=== PATIENT | male | born 1985 | race Two or more races ===

== ENCOUNTER 2016-10-03 10:04 | Inpatient (IN) | payer BC ==
[2016-10-03 10:38] VITALS: BMI 23.6
--- NOTE | 2016-10-03 13:10 | HP ---
COWS - Scale Resting Pulse: 1= [place] 81-100 Sweatin= Chills/Flushing Restless Observation: 3= Extraneous Movement Pupil Size: 2= Moderately Dilated Bone or Joint Aches: 4=Acute Joint/Muscle Pain Runny Nose/ Eye Tearin= Nasal Congestion GI Upset > 30mins: 1= Stomach Cramp Tremor Observation: 2= Slight Tremor Visible Yawning Observation: 1= 1-2x During Session Anxiety or Irritability: 1=Feels Anxious/Irritable Goose Flesh Skin: 0=Smooth Skin COWS Score: 17 Admission ROS BHS - HPI Chief Complaint: DETOX [place] FOR HEROIN DEPENDENCE Allergies/Adverse Reactions: Allergies Allergy/AdvReac Type Severity Reaction Status Date / Time No Known Allergies Allergy Verified 10/03/16 11:39 History of Present Illness: 31 Y/O H/M WITH A HX OF HEROIN AND MARIJUANA DEPENDENCE SEEKING DETOX [place] Exam Limitations: No Limitations - Ebola screening Have you traveled outside of the country in the last 21 days: No Have you had contact with anyone from an Ebola affected area: No Have you been sick,other than usual withdrawal symptoms: No Do you have a fever: No - Review of Systems Constitutional: Chills, Loss of Appetite, Night Sweats, Changes in sleep, Unintentional Wgt. Loss EENT: reports: Blurred Vision, Tearing, Nose Congestion Respiratory: reports: Shortness of Breath (HX ASTHMA), Wheezing Cardiac: reports: Lightheadedness GI: reports: Constipated, Nausea, Poor Appetite, Vomiting : reports: No Symptoms Reported Musculoskeletal: reports: Back Pain, Joint Pain, Muscle Pain Integumentary: reports: No Symptoms Reported Neuro: reports: Headache, Dizziness Endocrine: reports: No Symptoms Reported Hematology: reports: No Symptoms Reported Psychiatric: reports: Orientated x3, Anxious, Depressed Other Systems: Reviewed and Negative Patient History - Patient Medical History Hx Anemia: No Hx Asthma: Yes (MDI) Hx Chronic Obstructive Pulmonary Disease (COPD): No Hx Cancer: No Hx Cardiac Disorders: No Hx Congestive Heart Failure: No Hx Hypertension: No Hx Hypercholesterolemia: No Hx Pacemaker: No HX Cerebrovascular Accident: No Hx Seizures: No Hx Dementia: No Hx Diabetes: No Hx Gastrointestinal Disorders: No Hx Liver Disease: No Hx Genitourinary Disorders: No Hx Sexually Transmitted Disorders: No Hx Renal Disease (ESRD): No Hx Thyroid Disease: No Hx Human Immunodeficiency Virus (HIV): No (NEGATIVE HX) Hx Hepatitis C: No Hx Depression: Yes (NOT CURRENTLY ON MEDS) Hx Suicide Attempt: No (DENIES) Hx Bipolar Disorder: No Hx Schizophrenia: No - Patient Surgical History Past Surgical History: No Hx Neurologic Surgery: No Hx Cataract Extraction: No Hx Cardiac Surgery: No Hx Lung Surgery: No Hx Breast Surgery: No Hx Breast Biopsy: No Hx Abdominal Surgery: No Hx Appendectomy: No Hx Cholecystectomy: No Hx Genitourinary Surgery: No Hx Orthopedic Surgery: No Anesthesia Reaction: No - PPD History Previous Implant?: Yes Documented Results: Negative w/proof Implanted On Prior [facility] Admission?: Yes Date: 02/10/16 Results: 0 mm PPD to be Administered?: No - Reproductive History Patient is a Female of Child Bearing Age (11 -55 yrs old): No (MALE) - Smoking Cessation Smoking history: Current every day smoker Have you smoked in the past 12 months: Yes Aproximately how many cigarettes per day: 10 Hx Chewing Tobacco Use: No Initiated information on smoking cessation: Yes 'Breaking Loose' booklet given: 10/03/16 - Substance & Tx. History Hx Alcohol Use: No (DENIES-- "I DON'T DRINK".) Hx Substance Use: Yes (HEROIN/MARIJUANA) Substance Use Type: Heroin, Marijuana Hx Substance Use Treatment: Yes ([facility]-DETOX) - Substances Abused Heroin Route: Inhalation Frequency: Daily Amount used: 4-5 bags Age of first use: 30 Date of Last Use: 10/03/16 Marijuana Route: Smoking Frequency: Daily Amount used: $25 Age of first use: 13 Date of Last Use: 10/02/16 Family Disease History - Family Disease History Family Disease History: Diabetes: Father ( OF AN [place],DRUG ADDICT), Heart Disease: Father Admission Physical Exam BHS - Vital Signs Vital Signs: Vital Signs - 24 hr 10/03/16 10:36 Temperature 95.8 F L Pulse Rate 86 Respiratory 18 Rate Blood Pressure 121/77 - Physical General Appearance: Yes: Moderate Distress, Irritable, Anxious HEENTM: Yes: EOMI, Normocephalic, ANNELIESE, Pharynx Normal, Nasal Congestion, Rhinorrhea Respiratory: Yes: Chest Non-Tender, Lungs Clear, Normal Breath Sounds, No Respiratory Distress Neck: Yes: Supple, Trachea in good position Breast: Yes: Breast Exam Deferred Cardiology: Yes: Regular Rhythm, Regular Rate, S1, S2 Abdominal: Yes: Normal Bowel Sounds, Non Tender, Flat, Soft Genitourinary: Yes: Other (N/C) Musculoskeletal: Yes: full range of Motion, Gait Steady Extremities: Yes: Normal Range of Motion, Non-Tender Neurological: Yes: dermatologist and dermatopathologist II-XII NML intact, Fully Oriented, Alert, Motor Strength 5/5 Integumentary: Yes: Dry, Warm Lymphatic: Yes: Within Normal Limits - Diagnostic (1) Asthma Status: Chronic Qualifiers: Asthma severity: mild intermittent Asthma complication type: uncomplicated Qualified Code(s): J45.20 - Mild intermittent asthma, uncomplicated (2) Cannabis dependence Status: Acute (3) Nicotine dependence Status: Acute Qualifiers: Nicotine product type: cigarettes Substance use status: in withdrawal Qualified Code(s): F17.213 - Nicotine dependence, cigarettes, with withdrawal (4) Opioid dependence with withdrawal Status: Acute Cleared for Admission [facility] - Detox or Rehab [facility] Level of Care: Medically Managed Detox Regimen/Protocol: Methadone [facility] Breath Alcohol Content Breath Alcohol Content: 0 Urine Drug Screen - Results Drug Screen Negative: No Urine Drug Screen Results: THC-Marijuana, FER-Cocaine, OPI-Opiates, OXY- Oxycodone
[2016-10-03] MEDS ORDERED: P-EPHED 60MG/TRIPROLIDI 2.5MG TABLET PO PRN (13:13)
[2016-10-03] MEDS ORDERED: NICOTINE POLACRILEX 2 MG GUM BUC PRN (13:13)
[2016-10-03] MEDS ORDERED: MAGNESIUM CITRATE 300 ML BOTTLE PO PRN (13:13)
[2016-10-03] MEDS ORDERED: MENTHOL/PHENOL 1 EACH UD MM PRN (13:13)
[2016-10-03] MEDS ORDERED: LOPERAMIDE HCL 2 MG CAPSULE PO PRN (13:13)
[2016-10-03] MEDS ORDERED: guaiFENesin/D-METHORPHAN HB 10 ML UNIT-DOSE CUPS PO PRN (13:13)
[2016-10-03] MEDS ORDERED: MAG HYDROX/AL HYDROX/SIMETH 30 ML UNIT-DOSE CUP PO PRN (13:13)
[2016-10-03] MEDS ORDERED: MAGNESIUM HYDROX 2400MG/30ML ORAL SUSPENSION 30 ML CUP PO PRN (13:13)
[2016-10-03] MEDS ORDERED: IBUPROFEN 400 MG TABLET (FP) PO PRN (13:13)
[2016-10-03] MEDS ORDERED: ACETAMINOPHEN 325 MG TABLET (FP) PO PRN (13:13)
[2016-10-03] MEDS ORDERED: hydrOXYzine PAMOATE 25 MG CAPSULE (FP) PO PRN (13:13)
[2016-10-03] MEDS ORDERED: ALBUTEROL SO4 6.7 GM HFA INHALER IH PRN (13:15)
[2016-10-03] MEDS ORDERED: METHADONE HCL 10 MG TABLET (FOR DETOX USE ONLY) PO ONE ×2 (13:17→23:00)
[2016-10-03] MEDS: diazePAM 5 MG TABLET PO PRN ×2 (15:22→22:14)
[2016-10-03] MEDS: NICOTINE 14 MG/24 HOURS TOPICAL PATCH TD SCH (15:23)
[2016-10-03 18:53] LABS: URINE APPEARANCE CLEAR; URINE BILIRUBIN NEGATIVE (NEGATIVE); URINE BLOOD NEGATIVE (NEGATIVE); URINE COLOR LTYELLOW; URINE GLUCOSE (UA) NEGATIVE (NEGATIVE); URINE KETONE NEGATIVE (NEGATIVE); URINE LEUK ESTERASE NEGATIVE (NEGATIVE); URINE NITRITE NEGATIVE (NEGATIVE); URINE PROTEIN NEGATIVE (NEGATIVE); URINE UROBILINOGEN NEGATIVE E.U./dl (0.2-1.0)
[2016-10-03] MEDS: THIAMINE HCL 100 MG TABLET (FP) PO SCH (22:14)
[2016-10-03] MEDS: diphenhydrAMINE HCL 50 MG CAPSULE PO PRN (22:14)
[2016-10-04] MEDS: diazePAM 5 MG TABLET PO PRN ×3 (06:14→22:12)
[2016-10-04] MEDS ORDERED: METHADONE HCL 10 MG TABLET (FOR DETOX USE ONLY) PO ONE (10:00)
[2016-10-04] MEDS: PRENATAL VITAMINS W/ FOLIC ACID TABLET (FP) PO SCH (10:06)
[2016-10-04] MEDS: NICOTINE 14 MG/24 HOURS TOPICAL PATCH TD SCH (10:07)
[2016-10-04 10:19] LABS: MCH 30.8 pg (25.7-33.7); MCHC 34.1 g/dl (32.0-35.9); MEAN CELL VOLUME 90.1 fl (80-96); MEAN PLT VOLUME 10.1 fl (7.5-11.1); PLATELET COUNT 248 K/MM3 (134-434); RDW 11.9 % (11.9-15.9); WHITE BLOOD COUNT 9.4 K/mm3 (4.0-10.0)
[2016-10-04 10:43] LABS: ALBUMIN 3.9 g/dl (3.4-5.0); BILIRUBIN,TOTAL 0.2 mg/dL (0.2-1.0); CALCIUM 9.1 mg/dL (8.5-10.1); CREATININE 1.4 mg/dL (0.7-1.3); TOT PROT 7.3 g/dl (6.4-8.2)
--- NOTE | 2016-10-04 11:08 | PN ---
BHS COWS - Scale Resting Pulse: 1= [place] 81-100 Sweatin=Flushed/Facial Moisture Restless Observation: 0= Sits Still Pupil Size: 0= Normal to Room Light Bone or Joint Aches: 2= Severe Diffuse Aches Runny Nose/ Eye Tearin= Runny Nose/Eyes GI Upset > 30mins: 1= Stomach Cramp Tremor Observation of Outstretched Hands: 2= Slight Tremor Visible Yawning Observation: 2= >3x During Session Anxiety or Irritability: 2=Irritable/Anxious Goose Flesh Skin: 3=Piloerection COWS Score: 17 BHS Progress Note (SOAP) Subjective: irritable restless body aches sweats agitation anxiety interrupted sleep Objective: 10/04/16 11:07 Vital Signs Temperature 98.1 F 10/04/16 10:32 Pulse Rate 89 10/04/16 10:32 Respiratory Rate 16 10/04/16 10:32 Blood Pressure 114/89 10/04/16 10:32 O2 Sat by Pulse Oximetry (%) Laboratory Tests 10/03/16 10/04/16 10/04/16 13:00 06:00 06:00 WBC 9.4 D RBC 4.61 Hgb 14.2 Hct 41.6 MCV 90.1 MCHC 34.1 RDW 11.9 D Plt Count 248 MPV 10.1 Sodium 142 Potassium 4.3 Chloride 103 D Carbon Dioxide 28 Anion Gap 11 BUN 19 H D Creatinine 1.4 H Creat Clearance w eGFR 58.73 Random Glucose 120 H D Calcium 9.1 Total Bilirubin 0.2 D AST 16 D ALT 24 D Alkaline Phosphatase 102 Total Protein 7.3 Albumin 3.9 Urine Color Ltyellow Urine Appearance Clear Urine pH 5.0 Ur Specific [place] 1.025 Urine Protein Negative Urine Glucose (UA) Negative Urine Ketones Negative Urine Blood Negative Urine Nitrite Negative Urine Bilirubin Negative Urine Urobilinogen Negative Ur Leukocyte Esterase Negative awake/alert ambulating no acute distress Assessment: 10/04/16 11:07 withdrawal sx Plan: continue detox increase fluids
--- NOTE | 2016-10-04 12:36 | EKG ---
Test Reason : Blood Pressure : / mmHG Vent. Rate : 068 BPM Atrial Rate : 068 BPM P-R Int : 170 ms QRS Dur : 094 ms QT Int : 390 ms P-R-T Axes : 048 -67 027 degrees QTc Int : 414 ms NORMAL SINUS RHYTHM LEFT AXIS DEVIATION ABNORMAL ECG NO PREVIOUS ECGS AVAILABLE Confirmed by CHELSEA BERRY MD ([id number]) on 10/04/2016 12:36:08 PM Referred By: Confirmed By:CHELSEA BERRY MD
--- NOTE | 2016-10-04 15:26 | CONSULT ---
[facility] Psychiatric Consult - Data Date of interview: 10/04/16 Admission source: [facility] Identifying data: Another admission to [facility] for this 31 y/o male seeking detox treatment on for heroin and marijuana dependence.Patient is ,a father of three,homeless (usp),unemployed and supported on food stamps. Substance Abuse History: - Smoking Cessation. Smoking history: Current every day smoker. Have you smoked in the past 12 months: Yes. Aproximately how many cigarettes per day: 10. Hx Chewing Tobacco Use: No. Initiated information on smoking cessation: Yes. 'Breaking Loose' booklet given: 10/03/16. - Substance & Tx. History. Hx Alcohol Use: No (DENIES-- "I DON'T DRINK".). Hx Substance Use: Yes (HEROIN/MARIJUANA). Substance Use Type: Heroin, Marijuana. Hx Substance Use Treatment: Yes ([facility]-DETOX). - Substances Abused. Heroin. Route: Inhalation. Frequency: Daily. Amount used: 4-5 bags. Age of first use : 30. Date of Last Use: 10/03/16. Marijuana. Route: Smoking. Frequency: Daily. Amount used: $25. Age of first use: 13. Date of Last Use: 10/02/16. Confirmed by patient. Medical History: Bronchial asthma. Psychiatric History: No history of psychiatric hospitalizations.Treated in group home (2005) with depakote and remeron.Diagnosed with bipolar disorder.Lost to follow up since 2012." Mr Porter consents (verbally) only for remeron at bedtime.Patient denies history of suicide attempts. Physical/Sexual Abuse/Trauma History: Patient denies. Additional Comment: Urine Drug Screen Results: THC-Marijuana, FER-Cocaine, OPI- Opiates, OXY-Oxycodone.Noted. Mental Status Exam - Mental Status Exam Alert and Oriented to: Time, Place, Person Cognitive Function: Good Patient Appearance: Well Groomed Mood: Withdrawn Affect: Appropriate, Normal Range Patient Behavior: Fatigued, Appropriate, Cooperative Speech Pattern: Clear, Appropriate Voice Loudness: Normal Thought Process: Goal Oriented Thought Disorder: Not Present Hallucinations: Denies Suicidal Ideation: Denies Homicidal Ideation: Denies Insight/Judgement: Poor Sleep: Poorly, Difficulty falling asleep Appetite: Good Muscle strength/Tone: Normal Gait/Station: Normal Psychiatric Findings - Problem List ([place] 1, 2,3) (1) Opioid dependence with withdrawal Current Visit: Yes Status: Acute (2) Cannabis dependence Current Visit: Yes Status: Acute (3) Cocaine dependence Current Visit: Yes Status: Acute Qualifiers: Substance use status: uncomplicated Qualified Code(s): F14.20 - Cocaine dependence, uncomplicated (4) Nicotine dependence Current Visit: Yes Status: Acute Qualifiers: Nicotine product type: cigarettes Substance use status: uncomplicated Qualified Code(s): F17.210 - Nicotine dependence, cigarettes, uncomplicated (5) Bipolar disorder Current Visit: Yes Status: Chronic (6) Drug-induced mood disorder Current Visit: Yes Status: Acute (7) Asthma Current Visit: No Status: Chronic Qualifiers: Asthma severity: mild intermittent Asthma complication type: uncomplicated Qualified Code(s): J45.20 - Mild intermittent asthma, uncomplicated - Initial Treatment Plan Initial Treatment Plan: Psychoeducation.Detoxification.Remeron 15 mg po hs.Side effects/benefits discussed with the patient.Observation.
[2016-10-04] MEDS ORDERED: MIRTAZAPINE 15 MG TABLET (FP) PO SCH (22:00)
[2016-10-04] MEDS: THIAMINE HCL 100 MG TABLET (FP) PO SCH (22:12)
[2016-10-04] MEDS: diphenhydrAMINE HCL 50 MG CAPSULE PO PRN (22:12)
--- NOTE | 2016-10-05 09:06 | PN ---
S COWS - Scale Resting Pulse: 0= [place] 80 or Below Sweatin=Flushed/Facial Moisture Restless Observation: 1= Difficult to Sit Still Pupil Size: 0= Normal to Room Light Bone or Joint Aches: 2= Severe Diffuse Aches Runny Nose/ Eye Tearin= Nasal Congestion GI Upset > 30mins: 0= None Tremor Observation of Outstretched Hands: 1= Tremor [place], Not Seen Yawning Observation: 1= 1-2x During Session Anxiety or Irritability: 2=Irritable/Anxious Goose Flesh Skin: 3=Piloerection COWS Score: 13 BHS Progress Note (SOAP) Subjective: agitation sweats starting to feel better Objective: 10/05/16 09:05 Vital Signs Temperature 97.7 F 10/05/16 06:00 Pulse Rate 58 L 10/05/16 06:00 Respiratory Rate 16 10/05/16 06:00 Blood Pressure 119/78 10/05/16 06:00 O2 Sat by Pulse Oximetry (%) Laboratory Tests 10/03/16 10/04/16 10/04/16 13:00 06:00 06:00 WBC 9.4 D RBC 4.61 Hgb 14.2 Hct 41.6 MCV 90.1 MCHC 34.1 RDW 11.9 D Plt Count 248 MPV 10.1 Sodium 142 Potassium 4.3 Chloride 103 D Carbon Dioxide 28 Anion Gap 11 BUN 19 H D Creatinine 1.4 H Creat Clearance w eGFR 58.73 Random Glucose 120 H D Calcium 9.1 Total Bilirubin 0.2 D AST 16 D ALT 24 D Alkaline Phosphatase 102 Total Protein 7.3 Albumin 3.9 Urine Color Ltyellow Urine Appearance Clear Urine pH 5.0 Ur Specific [place] 1.025 Urine Protein Negative Urine Glucose (UA) Negative Urine Ketones Negative Urine Blood Negative Urine Nitrite Negative Urine Bilirubin Negative Urine Urobilinogen Negative Ur Leukocyte Esterase Negative RPR Titer 10/04/16 06:00 WBC RBC Hgb Hct MCV MCHC RDW Plt Count MPV Sodium Potassium Chloride Carbon Dioxide Anion Gap BUN Creatinine Creat Clearance w eGFR Random Glucose Calcium Total Bilirubin AST ALT Alkaline Phosphatase Total Protein Albumin Urine Color Urine Appearance Urine pH Ur Specific [place] Urine Protein Urine Glucose (UA) Urine Ketones Urine Blood Urine Nitrite Urine Bilirubin Urine Urobilinogen Ur Leukocyte Esterase RPR Titer Nonreactive awake/alert ambulating no acute distress Assessment: 10/05/16 09:05 withdrawal sx Plan: continue detox increase fluids
[2016-10-05] MEDS ORDERED: METHADONE HCL 5 MG TABLET (FOR DETOX USE ONLY) PO ONE (10:00)
[2016-10-05] MEDS: PRENATAL VITAMINS W/ FOLIC ACID TABLET (FP) PO SCH (11:05)
[2016-10-05] MEDS: NICOTINE 14 MG/24 HOURS TOPICAL PATCH TD SCH (11:06)
[2016-10-05] MEDS: diazePAM 5 MG TABLET PO PRN ×2 (11:09→16:59)
--- NOTE | 2016-10-05 11:59 | EKG ---
Test Reason : Blood Pressure : / mmHG Vent. Rate : 070 BPM Atrial Rate : 070 BPM P-R Int : 164 ms QRS Dur : 096 ms QT Int : 394 ms P-R-T Axes : 066 -63 024 degrees QTc Int : 425 ms NORMAL SINUS RHYTHM LEFT AXIS DEVIATION ABNORMAL ECG WHEN COMPARED WITH ECG OF 03-OCT-2016 14:11, NO SIGNIFICANT CHANGE WAS FOUND Confirmed by JOHN REYES MD ([id number]) on 10/05/2016 11:58:50 AM Referred By: Confirmed By:JOHN REYES MD
[2016-10-05 17:54] VITALS: BP 128/83; PULSE 106; TEMP 97.7
--- NOTE | 2016-10-05 22:44 | DS ---
[facility] Detox Discharge Summary Admission Date: 10/03/16 Discharge Date: 10/05/16 - History Present History: Cannabis Dependence, Cocaine Dependence, Opioid Dependence Additional Comments: patient insists to leave the unit, refuses to wait face to face with the provider consider to follow up care as per arranged by the counselor refuses e prescription Pertinent Past History: bipolar ii asthma nicotine - Physical Exam Results Vital Signs: Vital Signs Temperature 97.7 F 10/05/16 17:53 Pulse Rate 106 H 10/05/16 17:53 Respiratory Rate 20 10/05/16 17:53 Blood Pressure 128/83 10/05/16 17:53 O2 Sat by Pulse Oximetry (%) Pertinent Admission Physical Exam Findings: withdrawal sx Laboratory Last Values WBC 9.4 K/mm3 (4.0-10.0) D 10/04/16 06:00 RBC 4.61 M/mm3 (4.00-5.60) 10/04/16 06:00 Hgb 14.2 GM/dL (11.7-16.9) 10/04/16 06:00 Hct 41.6 % (35.4-49) 10/04/16 06:00 MCV 90.1 fl (80-96) 10/04/16 06:00 MCHC 34.1 g/dl (32.0-35.9) 10/04/16 06:00 RDW 11.9 % (11.9-15.9) D 10/04/16 06:00 Plt Count 248 K/MM3 (134-434) 10/04/16 06:00 MPV 10.1 fl (7.5-11.1) 10/04/16 06:00 Sodium 142 mmol/L (136-145) 10/04/16 06:00 Potassium 4.3 mmol/L (3.5-5.1) 10/04/16 06:00 Chloride 103 mmol/L (98-107) D 10/04/16 06:00 Carbon Dioxide 28 mmol/L (21-32) 10/04/16 06:00 Anion Gap 11 (8-16) 10/04/16 06:00 BUN 19 mg/dL (7-18) H D 10/04/16 06:00 Creatinine 1.4 mg/dL (0.7-1.3) H 10/04/16 06:00 Creat Clearance w eGFR 58.73 (>60) 10/04/16 06:00 Random Glucose 120 mg/dL (74-106) H D 10/04/16 06:00 Calcium 9.1 mg/dL (8.5-10.1) 10/04/16 06:00 Total Bilirubin 0.2 mg/dL (0.2-1.0) D 10/04/16 06:00 AST 16 U/L (15-37) D 10/04/16 06:00 ALT 24 U/L (12-78) D 10/04/16 06:00 Alkaline Phosphatase 102 U/L (45-117) 10/04/16 06:00 Total Protein 7.3 g/dl (6.4-8.2) 10/04/16 06:00 Albumin 3.9 g/dl (3.4-5.0) 10/04/16 06:00 Urine Color Ltyellow 10/03/16 13:00 Urine Appearance Clear 10/03/16 13:00 Urine pH 5.0 (5.0-8.0) 10/03/16 13:00 Ur Specific [place] 1.025 (1.001-1.035) 10/03/16 13:00 Urine Protein Negative (NEGATIVE) 10/03/16 13:00 Urine Glucose (UA) Negative (NEGATIVE) 10/03/16 13:00 Urine Ketones Negative (NEGATIVE) 10/03/16 13:00 Urine Blood Negative (NEGATIVE) 10/03/16 13:00 Urine Nitrite Negative (NEGATIVE) 10/03/16 13:00 Urine Bilirubin Negative (NEGATIVE) 10/03/16 13:00 Urine Urobilinogen Negative E.U./dl (0.2-1.0) 10/03/16 13:00 Ur Leukocyte Esterase Negative (NEGATIVE) 10/03/16 13:00 RPR Titer Nonreactive (NONREACTIVE) 10/04/16 06:00 lab noted - Treatment Hospital Course: Detox Protocol Followed, Responded well - Medication Discharge Medications: Ambulatory Orders Albuterol Sulfate Inhaler - [Ventolin Hfa Inhaler -] 2 inh PO Q4H PRN 03/30/16 Mirtazapine [Remeron -] 30 mg PO HS #30 tablet 03/31/16 Mirtazapine [Remeron -] 15 mg PO HS #30 tablet 10/04/16 - Diagnosis (1) Nicotine dependence Status: Acute Qualifiers: Nicotine product type: cigarettes Substance use status: in withdrawal Qualified Code(s): F17.213 - Nicotine dependence, cigarettes, with withdrawal (2) Opioid dependence with withdrawal Status: Acute (3) Asthma Status: Acute Qualifiers: Asthma severity: mild intermittent Asthma complication type: uncomplicated Qualified Code(s): J45.20 - Mild intermittent asthma, uncomplicated (4) Cocaine dependence, uncomplicated Status: Chronic (5) Cannabis dependence, uncomplicated Status: Chronic (6) Bipolar II disorder Status: Suspected - AMA Did Patient Leave Against Medical Advice: Yes
[2016-10-06] MEDS ORDERED: METHADONE HCL 5 MG TABLET (FOR DETOX USE ONLY) PO ONE (10:00)
[2016-10-07] MEDS ORDERED: METHADONE HCL 10 MG TABLET (FOR DETOX USE ONLY) PO ONE (10:00)
[2016-10-08] MEDS ORDERED: METHADONE HCL 5 MG TABLET (FOR DETOX USE ONLY) PO ONE (06:00)
== END 2016-10-05 20:00 | disposition left against medical advice (07) | DRG 770 ==
LOC: YASAS 10:04 → Y6N 12:07
PROVIDERS: ADMIT Internal Medicine Addiction Medicine; ATTEND Internal Medicine Addiction Medicine
PROC: HZ2ZZZZ Detoxification Services for Substance Abuse Treatment (ICD-10-PCS; principal; 2016-10-05)
DX: F11.23 Opioid dependence with withdrawal (principal); F14.20 Cocaine dependence, uncomplicated; F12.20 Cannabis dependence, uncomplicated; F17.210 Nicotine dependence, cigarettes, uncomplicated; F19.24 Other psychoactive substance dependence with psychoactive substance-induced mood disorder; F31.81 Bipolar II disorder; J45.20 Mild intermittent asthma, uncomplicated
CPT/HCPCS: 36415; 80053; 81003; 85027; 86593; 93005; 93010

== ENCOUNTER 2016-11-26 10:12 | Inpatient (IN) | payer BC ==
[2016-11-26 11:03] VITALS: BMI 22.7
--- NOTE | 2016-11-26 12:47 | HP ---
COWS - Scale Resting Pulse: 0= [place] 80 or Below Sweatin=Flushed/Facial Moisture Restless Observation: 1= Difficult to Sit Still Pupil Size: 2= Moderately Dilated Bone or Joint Aches: 2= Severe Diffuse Aches Runny Nose/ Eye Tearin= Runny Nose/Eyes GI Upset > 30mins: 2= Nausea/Diarrhea Tremor Observation: 2= Slight Tremor Visible Yawning Observation: 1= 1-2x During Session Anxiety or Irritability: 2=Irritable/Anxious Goose Flesh Skin: 3=Piloerection COWS Score: 19 Admission ROS S - HPI Chief Complaint: Withdrawal sx. Allergies/Adverse Reactions: Allergies Allergy/AdvReac Type Severity Reaction Status Date / Time No Known Allergies Allergy Verified 11/26/16 12:14 History of Present Illness: 31 y/o man with a long hx. of drug dependence is admitted for detox.pt. has been in previous detox but completed only once. Exam Limitations: No Limitations - Ebola screening Have you traveled outside of the country in the last 21 days: No Have you had contact with anyone from an Ebola affected area: No Have you been sick,other than usual withdrawal symptoms: No Do you have a fever: No - Review of Systems Constitutional: Diaphoresis EENT: reports: Nose Congestion Respiratory: reports: No Symptoms reported Cardiac: reports: No Symptoms Reported GI: reports: Nausea, Abdominal cramping : reports: No Symptoms Reported Musculoskeletal: reports: Back Pain, Joint Pain, Muscle Pain Integumentary: reports: Sweating Neuro: reports: Tremors Endocrine: reports: No Symptoms Reported Hematology: reports: No Symptoms Reported Psychiatric: reports: No Sypmtoms Reported Other Systems: Reviewed and Negative Patient History - Patient Medical History Hx Anemia: No Hx Asthma: Yes Hx Chronic Obstructive Pulmonary Disease (COPD): Yes Hx Cancer: No Hx Cardiac Disorders: No Hx Congestive Heart Failure: No Hx Hypertension: No Hx Hypercholesterolemia: No Hx Pacemaker: No HX Cerebrovascular Accident: No Hx Seizures: No Hx Dementia: No Hx Diabetes: No Hx Gastrointestinal Disorders: No Hx Liver Disease: No Hx Genitourinary Disorders: No Hx Sexually Transmitted Disorders: No Hx Renal Disease (ESRD): No Hx Thyroid Disease: No Hx Human Immunodeficiency Virus (HIV): No Hx Hepatitis C: No Hx Depression: Yes Hx Suicide Attempt: No Hx Bipolar Disorder: No Hx Schizophrenia: No - Patient Surgical History Past Surgical History: No Hx Neurologic Surgery: No Hx Cataract Extraction: No Hx Cardiac Surgery: No Hx Lung Surgery: No Hx Breast Surgery: No Hx Breast Biopsy: No Hx Abdominal Surgery: No Hx Appendectomy: No Hx Cholecystectomy: No Hx Genitourinary Surgery: No Hx Section: No Hx Orthopedic Surgery: No Anesthesia Reaction: No - PPD History Previous Implant?: Yes Documented Results: Negative w/proof Implanted On Prior [facility] Admission?: Yes Date: 02/10/16 Results: 0 mm PPD to be Administered?: No - Smoking Cessation Smoking history: Current every day smoker Have you smoked in the past 12 months: Yes Aproximately how many cigarettes per day: 10 Hx Chewing Tobacco Use: No Initiated information on smoking cessation: Yes 'Breaking Loose' booklet given: 11/26/16 - Substance & Tx. History Hx Alcohol Use: No Hx Substance Use: Yes Substance Use Type: Heroin, Marijuana Hx Substance Use Treatment: Yes (Detox) - Substances Abused Heroin Route: Inhalation Frequency: Daily Amount used: 15-18 bags Age of first use: 29 Date of Last Use: 11/25/16 Marijuana/Hashish Route: Smoking Frequency: Daily Amount used: 3-4 blunts Age of first use: 14 Date of Last Use: 11/25/16 Family Disease History - Family Disease History Family Disease History: Diabetes: Father ( OF AN [place],DRUG ADDICT), Heart Disease: Father, Other: Mother (In remission from alcohol) Admission Physical Exam S - Vital Signs Vital Signs: Vital Signs - 24 hr 11/26/16 11:01 Temperature 96.3 F L Pulse Rate 72 Respiratory 18 Rate Blood Pressure 110/81 - Physical General Appearance: Yes: Tremorous, Sweating, Anxious HEENTM: Yes: Nasal Congestion, Rhinorrhea Respiratory: Yes: Chest Non-Tender, Lungs Clear, Normal Breath Sounds Neck: Yes: Supple Breast: Yes: Breast Exam Deferred Cardiology: Yes: Regular Rhythm, Regular Rate, S1, S2 Abdominal: Yes: Normal Bowel Sounds, Non Tender, Soft Genitourinary: Yes: Within Normal Limits Musculoskeletal: Yes: Within Normal Limits Extremities: Yes: Tremors Neurological: Yes: Fully Oriented, Alert Integumentary: Yes: Diaphoresis Lymphatic: Yes: Within Normal Limits - Diagnostic (1) Cannabis dependence Current Visit: Yes Status: Acute (2) Nicotine dependence Current Visit: Yes Status: Acute Qualifiers: Nicotine product type: cigarettes Substance use status: in withdrawal Qualified Code(s): F17.213 - Nicotine dependence, cigarettes, with withdrawal (3) Opioid dependence with withdrawal Current Visit: Yes Status: Acute (4) Asthma Current Visit: Yes Status: Chronic Qualifiers: Asthma severity: mild intermittent Asthma complication type: uncomplicated Qualified Code(s): J45.20 - Mild intermittent asthma, uncomplicated Cleared for Admission S - Detox or Rehab [facility] Level of Care: Medically Managed Detox Regimen/Protocol: Methadone S Breath Alcohol Content Breath Alcohol Content: 0 Urine Drug Screen - Results Drug Screen Negative: No Urine Drug Screen Results: THC-Marijuana, OPI-Opiates, MTD-Methadone
[2016-11-26] MEDS ORDERED: ACETAMINOPHEN 325 MG TABLET (FP) PO PRN (12:56)
[2016-11-26] MEDS ORDERED: P-EPHED 60MG/TRIPROLIDI 2.5MG TABLET PO PRN (12:56)
[2016-11-26] MEDS ORDERED: diphenhydrAMINE HCL 50 MG CAPSULE PO PRN (12:56)
[2016-11-26] MEDS ORDERED: MAG HYDROX/AL HYDROX/SIMETH 30 ML UNIT-DOSE CUP PO PRN (12:56)
[2016-11-26] MEDS ORDERED: MAGNESIUM CITRATE 300 ML BOTTLE PO PRN (12:56)
[2016-11-26] MEDS ORDERED: MENTHOL/PHENOL 1 EACH UD MM PRN (12:56)
[2016-11-26] MEDS ORDERED: LOPERAMIDE HCL 2 MG CAPSULE PO PRN (12:56)
[2016-11-26] MEDS ORDERED: NICOTINE POLACRILEX 2 MG GUM BC PRN (12:56)
[2016-11-26] MEDS ORDERED: guaiFENesin/D-METHORPHAN HB 10 ML UNIT-DOSE CUPS PO PRN (12:56)
[2016-11-26] MEDS ORDERED: MAGNESIUM HYDROX 2400MG/30ML ORAL SUSPENSION 30 ML CUP PO PRN (12:56)
[2016-11-26] MEDS ORDERED: hydrOXYzine PAMOATE 50 MG CAPSULE (FP) PO PRN (12:56)
[2016-11-26] MEDS ORDERED: IBUPROFEN 400 MG TABLET (FP) PO PRN (12:56)
[2016-11-26] MEDS ORDERED: ALBUTEROL SO4 6.7 GM HFA INHALER IH PRN (12:58)
[2016-11-26] MEDS: NICOTINE 21 MG/24 HOURS TOPICAL PATCH TD SCH (13:44)
[2016-11-26] MEDS: diazePAM 5 MG TABLET PO PRN ×2 (13:48→21:19)
[2016-11-26] MEDS ORDERED: METHADONE HCL 10 MG TABLET (FOR DETOX USE ONLY) PO ONE ×2 (14:00→23:00)
--- NOTE | 2016-11-26 14:46 | CONSULT ---
[facility] Psychiatric Consult - Data Date of interview: 11/26/16 Admission source: [facility] Identifying data: Readmission to [facility] for this 31 y/o male seeking detox treatment on for heroin and marijuana dependence.Patient is ,a father of three,homeless (fpc),unemployed and supported on food stamps. Substance Abuse History: - Smoking Cessation. Smoking history: Current every day smoker. Have you smoked in the past 12 months: Yes. Aproximately how many cigarettes per day: 10. Hx Chewing Tobacco Use: No. Initiated information on smoking cessation: Yes. 'Breaking Loose' booklet given: 11/26/16. - Substance & Tx. History. Hx Alcohol Use: No. Hx Substance Use: Yes. Substance Use Type : Heroin, Marijuana. Hx Substance Use Treatment: Yes (Detox). - Substances Abused. Heroin. Route: Inhalation. Frequency: Daily. Amount used: 15-18 bags. Age of first use: 29. Date of Last Use: 11/25/16. Marijuana/ Hashish. Route: Smoking. Frequency: Daily. Amount used: 3-4 blunts. Age of first use: 14. Date of Last Use: 11/25/16. Confirmed by patient. Medical History: Bronchial asthma. Psychiatric History: Patient denies history of psychiatric hospitalizations.Was treated in retirement (2005) with depakote and remeron.Diagnosed with Bipolar Disorder.Lost to follow up since 2012." Mr Porter states that he did not follow up with medications after his discharge from [facility]." I did not corn picker my scripts." Patient expresses interest in a trial with seroquel at bedtime.He declines to take depakote because of past history of adverse effects.Patient denies history of suicide attempts. Physical/Sexual Abuse/Trauma History: Patient denies. Additional Comment: Urine Drug Screen Results: THC-Marijuana, OPI-Opiates, MTD- Methadone.Noted. Mental Status Exam - Mental Status Exam Alert and Oriented to: Time, Place, Person Cognitive Function: Good Patient Appearance: Unkempt, Disheveled Mood: Nervous, Withdrawn, Anxious Affect: Constricted Patient Behavior: Fatigued, Cooperative Speech Pattern: Clear Voice Loudness: Normal Thought Process: Goal Oriented Thought Disorder: Not Present Hallucinations: Denies Suicidal Ideation: Denies Homicidal Ideation: Denies Insight/Judgement: Poor Sleep: Poorly, Difficulty falling asleep Appetite: Good Muscle strength/Tone: Normal Gait/Station: Normal Psychiatric Findings - Problem List ([place] 1, 2,3) (1) Cannabis dependence Current Visit: Yes Status: Acute (2) Nicotine dependence Current Visit: Yes Status: Acute Qualifiers: Nicotine product type: cigarettes Substance use status: in withdrawal Qualified Code(s): F17.213 - Nicotine dependence, cigarettes, with withdrawal (3) Opioid dependence with withdrawal Current Visit: Yes Status: Acute (4) Cocaine dependence Current Visit: Yes Status: Acute Qualifiers: Substance use status: uncomplicated Qualified Code(s): F14.20 - Cocaine dependence, uncomplicated (5) Drug-induced mood disorder Current Visit: Yes Status: Acute (6) Bipolar disorder Current Visit: No Status: Chronic Comment: Self-report. (7) Asthma Current Visit: Yes Status: Chronic Qualifiers: Asthma severity: mild intermittent Asthma complication type: uncomplicated Qualified Code(s): J45.20 - Mild intermittent asthma, uncomplicated (8) Insomnia Current Visit: Yes Status: Acute - Initial Treatment Plan Initial Treatment Plan: Psychoeducation.Detoxification.Medications : seroquel 100 mg po hs + remeron 7.5 mg po hs.Patient is made aware of side effects/ benefits of both drugs.He is in agreement with this careplan.Observation.
[2016-11-26 17:42] LABS: URINE APPEARANCE CLEAR; URINE BILIRUBIN NEGATIVE (NEGATIVE); URINE BLOOD NEGATIVE (NEGATIVE); URINE COLOR YELLOW; URINE GLUCOSE (UA) NEGATIVE (NEGATIVE); URINE KETONE NEGATIVE (NEGATIVE); URINE LEUK ESTERASE NEGATIVE (NEGATIVE); URINE NITRITE NEGATIVE (NEGATIVE); URINE PROTEIN NEGATIVE (NEGATIVE); URINE UROBILINOGEN NEGATIVE E.U./dl (0.2-1.0)
[2016-11-26] MEDS: THIAMINE HCL 100 MG TABLET (FP) PO SCH (22:10)
[2016-11-26] MEDS: MIRTAZAPINE 15 MG TABLET (FP) PO SCH (22:10)
[2016-11-26] MEDS: QUEtiapine FUMARATE 100 MG TABLET (FP) PO SCH (22:11)
[2016-11-27] MEDS: diazePAM 5 MG TABLET PO PRN ×2 (05:54→22:33)
[2016-11-27] MEDS ORDERED: TRIMETHOBENZAMIDE HCL 200MG/2ML INJ IM ONE (08:49)
[2016-11-27 09:58] LABS: MCH 29.7 pg (25.7-33.7); MCHC 33.8 g/dl (32.0-35.9); MEAN PLT VOLUME 9.9 fl (7.5-11.1); PLATELET COUNT 320 K/MM3 (134-434); RDW 12.1 % (11.9-15.9); WHITE BLOOD COUNT 8.8 K/mm3 (4.0-10.0)
[2016-11-27] MEDS ORDERED: METHADONE HCL 10 MG TABLET (FOR DETOX USE ONLY) PO ONE (10:00)
[2016-11-27] MEDS ORDERED: METHADONE HCL 10 MG/1 ML (20ML VIAL) IM ONE (10:24)
--- NOTE | 2016-11-27 10:40 | PN ---
S COWS - Scale Resting Pulse: 1= [place] 81-100 Sweatin= Chills/Flushing Restless Observation: 3= Extraneous Movement Pupil Size: 2= Moderately Dilated Bone or Joint Aches: 4=Acute Joint/Muscle Pain Runny Nose/ Eye Tearin= Nasal Congestion GI Upset > 30mins: 1= Stomach Cramp Tremor Observation of Outstretched Hands: 1= Tremor [place], Not Seen Yawning Observation: 1= 1-2x During Session Anxiety or Irritability: 2=Irritable/Anxious Goose Flesh Skin: 0=Smooth Skin COWS Score: 17 S Progress Note (SOAP) Subjective: ANXIETY,IRRITABILITY,SWEAT,NAUSEA/VOMITING,INTERMITTENT. Objective: 11/27/16 10:44 Vital Signs Temperature 98.3 F 11/27/16 09:45 Pulse Rate 87 11/27/16 09:45 Respiratory Rate 18 11/27/16 09:45 Blood Pressure 152/109 11/27/16 09:45 O2 Sat by Pulse Oximetry (%) Laboratory Last Values WBC 8.8 K/mm3 (4.0-10.0) 11/27/16 06:00 RBC 5.08 M/mm3 (4.00-5.60) 11/27/16 06:00 Hgb 15.1 GM/dL (11.7-16.9) 11/27/16 06:00 Hct 44.7 % (35.4-49) 11/27/16 06:00 MCV 88.0 fl (80-96) 11/27/16 06:00 MCHC 33.8 g/dl (32.0-35.9) 11/27/16 06:00 RDW 12.1 % (11.9-15.9) 11/27/16 06:00 Plt Count 320 K/MM3 (134-434) D 11/27/16 06:00 MPV 9.9 fl (7.5-11.1) 11/27/16 06:00 Urine Color Yellow 11/26/16 14:00 Urine Appearance Clear 11/26/16 14:00 Urine pH 5.0 (5.0-8.0) 11/26/16 14:00 Ur Specific [place] 1.020 (1.005-1.025) 11/26/16 14:00 Urine Protein Negative (NEGATIVE) 11/26/16 14:00 Urine Glucose (UA) Negative (NEGATIVE) 11/26/16 14:00 Urine Ketones Negative (NEGATIVE) 11/26/16 14:00 Urine Blood Negative (NEGATIVE) 11/26/16 14:00 Urine Nitrite Negative (NEGATIVE) 11/26/16 14:00 Urine Bilirubin Negative (NEGATIVE) 11/26/16 14:00 Urine Urobilinogen Negative E.U./dl (0.2-1.0) 11/26/16 14:00 Ur Leukocyte Esterase Negative (NEGATIVE) 11/26/16 14:00 RPR Titer Nonreactive (NONREACTIVE) 11/27/16 06:00 Assessment: 11/27/16 10:44 WITHDRAWAL SX Plan: CONTINUE DETOX. MACKENZIE IM PRN
[2016-11-27] MEDS ORDERED: METHADONE DETOX 10 MG/1 ML [20ML VIAL] IM ONE (10:41)
[2016-11-27] MEDS: NICOTINE 21 MG/24 HOURS TOPICAL PATCH TD SCH (10:53)
[2016-11-27] MEDS: PRENATAL VITAMINS W/ FOLIC ACID TABLET (FP) PO SCH (10:53)
--- NOTE | 2016-11-27 11:46 | EKG ---
Test Reason : Blood Pressure : / mmHG Vent. Rate : 063 BPM Atrial Rate : 063 BPM P-R Int : 164 ms QRS Dur : 090 ms QT Int : 392 ms P-R-T Axes : 058 -67 031 degrees QTc Int : 401 ms NORMAL SINUS RHYTHM LEFT AXIS DEVIATION ABNORMAL ECG WHEN COMPARED WITH ECG OF 03-OCT-2016 14:54, NO SIGNIFICANT CHANGE WAS FOUND Confirmed by KARLA SINGH MD ([id number]) on 11/27/2016 11:45:39 AM Referred By: Confirmed By:KARLA SINGH MD
[2016-11-27 11:54] LABS: COCKROFT - GAULT 95.25; CREATININE 1.1 mg/dL (0.7-1.3); GLUCOSE,RANDOM 92 mg/dL (74-106)
[2016-11-27 11:55] LABS: ALBUMIN 4.1 g/dl (3.4-5.0); ANION GAP 10 (8-16); BILIRUBIN,TOTAL 0.3 mg/dL (0.2-1.0); CALCIUM 9.8 mg/dL (8.5-10.1); CO2 28 mmol/L (21-32); SGOT/AST 14 U/L (15-37); TOT PROT 8.3 g/dl (6.4-8.2)
[2016-11-27 11:56] LABS: ALK PHOS 110 U/L (45-117); SGPT/ALT 19 U/L (12-78)
[2016-11-27] MEDS: TRIMETHOBENZAMIDE HCL 200MG/2ML INJ IM PRN (20:50)
[2016-11-27] MEDS: THIAMINE HCL 100 MG TABLET (FP) PO SCH (22:33)
[2016-11-27] MEDS: QUEtiapine FUMARATE 100 MG TABLET (FP) PO SCH (22:35)
[2016-11-27] MEDS: MIRTAZAPINE 15 MG TABLET (FP) PO SCH (22:36)
[2016-11-28] MEDS: TRIMETHOBENZAMIDE HCL 200MG/2ML INJ IM PRN ×2 (06:01→22:42)
[2016-11-28] MEDS ORDERED: METHADONE HCL 5 MG TABLET (FOR DETOX USE ONLY) PO ONE (10:00)
[2016-11-28] MEDS: PRENATAL VITAMINS W/ FOLIC ACID TABLET (FP) PO SCH (10:41)
[2016-11-28] MEDS: diazePAM 5 MG TABLET PO PRN (10:42)
[2016-11-28] MEDS: NICOTINE 21 MG/24 HOURS TOPICAL PATCH TD SCH (10:42)
--- NOTE | 2016-11-28 11:08 | PN ---
BHS COWS - Scale Resting Pulse: 2= [place] 101-120 Sweatin= Chills/Flushing Restless Observation: 3= Extraneous Movement Pupil Size: 1= Pupils >than Normal Bone or Joint Aches: 2= Severe Diffuse Aches Runny Nose/ Eye Tearin= Runny Nose/Eyes GI Upset > 30mins: 3= Vomiting/Diarrhea Tremor Observation of Outstretched Hands: 2= Slight Tremor Visible Yawning Observation: 1= 1-2x During Session Anxiety or Irritability: 2=Irritable/Anxious Goose Flesh Skin: 0=Smooth Skin COWS Score: 19 S Progress Note (SOAP) Subjective: ALERT,IRRITABLE,ANXIOUS,INTERRUPTED SLEEP,PAIN IN THE BODY AND BACK Objective: 11/28/16 11:06 Vital Signs Temperature 97.9 F 11/28/16 09:27 Pulse Rate 120 H 11/28/16 09:27 Respiratory Rate 18 11/28/16 09:27 Blood Pressure 138/98 11/28/16 09:27 O2 Sat by Pulse Oximetry (%) EKG NSR NO CHEST PAIN,NO SOB,NO DIZZINESS Laboratory Last Values WBC 8.8 K/mm3 (4.0-10.0) 11/27/16 06:00 RBC 5.08 M/mm3 (4.00-5.60) 11/27/16 06:00 Hgb 15.1 GM/dL (11.7-16.9) 11/27/16 06:00 Hct 44.7 % (35.4-49) 11/27/16 06:00 MCV 88.0 fl (80-96) 11/27/16 06:00 MCHC 33.8 g/dl (32.0-35.9) 11/27/16 06:00 RDW 12.1 % (11.9-15.9) 11/27/16 06:00 Plt Count 320 K/MM3 (134-434) D 11/27/16 06:00 MPV 9.9 fl (7.5-11.1) 11/27/16 06:00 Sodium 139 mmol/L (136-145) 11/27/16 06:00 Potassium 4.7 mmol/L (3.5-5.1) 11/27/16 06:00 Chloride 101 mmol/L (98-107) 11/27/16 06:00 Carbon Dioxide 28 mmol/L (21-32) 11/27/16 06:00 Anion Gap 10 (8-16) 11/27/16 06:00 BUN 12 mg/dL (7-18) D 11/27/16 06:00 Creatinine 1.1 mg/dL (0.7-1.3) D 11/27/16 06:00 Creat Clearance w eGFR > 60 (>60) 11/27/16 06:00 Random Glucose 92 mg/dL (74-106) D 11/27/16 06:00 Calcium 9.8 mg/dL (8.5-10.1) 11/27/16 06:00 Total Bilirubin 0.3 mg/dL (0.2-1.0) D 11/27/16 06:00 AST 14 U/L (15-37) L 11/27/16 06:00 ALT 19 U/L (12-78) D 11/27/16 06:00 Alkaline Phosphatase 110 U/L (45-117) 11/27/16 06:00 Total Protein 8.3 g/dl (6.4-8.2) H 11/27/16 06:00 Albumin 4.1 g/dl (3.4-5.0) 11/27/16 06:00 Urine Color Yellow 11/26/16 14:00 Urine Appearance Clear 11/26/16 14:00 Urine pH 5.0 (5.0-8.0) 11/26/16 14:00 Ur Specific [place] 1.020 (1.005-1.025) 11/26/16 14:00 Urine Protein Negative (NEGATIVE) 11/26/16 14:00 Urine Glucose (UA) Negative (NEGATIVE) 11/26/16 14:00 Urine Ketones Negative (NEGATIVE) 11/26/16 14:00 Urine Blood Negative (NEGATIVE) 11/26/16 14:00 Urine Nitrite Negative (NEGATIVE) 11/26/16 14:00 Urine Bilirubin Negative (NEGATIVE) 11/26/16 14:00 Urine Urobilinogen Negative E.U./dl (0.2-1.0) 11/26/16 14:00 Ur Leukocyte Esterase Negative (NEGATIVE) 11/26/16 14:00 RPR Titer Nonreactive (NONREACTIVE) 11/27/16 06:00 Assessment: 11/28/16 11:07 WITHDRAWAL SYMPTOM Plan: CONTINUE DETOX
[2016-11-28] MEDS: MIRTAZAPINE 15 MG TABLET (FP) PO SCH (22:08)
[2016-11-28] MEDS: QUEtiapine FUMARATE 100 MG TABLET (FP) PO SCH (22:08)
[2016-11-28] MEDS: THIAMINE HCL 100 MG TABLET (FP) PO SCH (22:08)
[2016-11-29] MEDS: TRIMETHOBENZAMIDE HCL 200MG/2ML INJ IM PRN (09:40)
[2016-11-29] MEDS ORDERED: METHADONE HCL 5 MG TABLET (FOR DETOX USE ONLY) PO ONE (10:00)
[2016-11-29] MEDS: PRENATAL VITAMINS W/ FOLIC ACID TABLET (FP) PO SCH (10:52)
[2016-11-29] MEDS: NICOTINE 21 MG/24 HOURS TOPICAL PATCH TD SCH (10:52)
--- NOTE | 2016-11-29 12:35 | PN ---
BHS Progress Note (SOAP) Subjective: Fatigue, Stomach Cramping, Body Aches, Vomiting, Tremors. Objective: PT. A & O X 3, OBSERVED AMBULATING ON UNIT. PT. DENIES CHEST PAIN. 11/29/16 12:31 Vital Signs Temperature 97.0 F L 11/29/16 09:14 Pulse Rate 97 H 11/29/16 09:14 Respiratory Rate 20 11/29/16 09:14 Blood Pressure 136/97 11/29/16 09:14 O2 Sat by Pulse Oximetry (%) Laboratory Tests 11/26/16 11/27/16 11/27/16 14:00 06:00 06:00 WBC 8.8 RBC 5.08 Hgb 15.1 Hct 44.7 MCV 88.0 MCHC 33.8 RDW 12.1 Plt Count 320 D MPV 9.9 Sodium 139 Potassium 4.7 Chloride 101 Carbon Dioxide 28 Anion Gap 10 BUN 12 D Creatinine 1.1 D Creat Clearance w eGFR > 60 Random Glucose 92 D Calcium 9.8 Total Bilirubin 0.3 D AST 14 L ALT 19 D Alkaline Phosphatase 110 Total Protein 8.3 H Albumin 4.1 Urine Color Yellow Urine Appearance Clear Urine pH 5.0 Ur Specific [place] 1.020 Urine Protein Negative Urine Glucose (UA) Negative Urine Ketones Negative Urine Blood Negative Urine Nitrite Negative Urine Bilirubin Negative Urine Urobilinogen Negative Ur Leukocyte Esterase Negative RPR Titer 11/27/16 06:00 WBC RBC Hgb Hct MCV MCHC RDW Plt Count MPV Sodium Potassium Chloride Carbon Dioxide Anion Gap BUN Creatinine Creat Clearance w eGFR Random Glucose Calcium Total Bilirubin AST ALT Alkaline Phosphatase Total Protein Albumin Urine Color Urine Appearance Urine pH Ur Specific [place] Urine Protein Urine Glucose (UA) Urine Ketones Urine Blood Urine Nitrite Urine Bilirubin Urine Urobilinogen Ur Leukocyte Esterase RPR Titer Nonreactive LABS NOTED. Assessment: 11/29/16 12:32 WITHDRAWAL SYMPTOMS. Plan: CONTINUE DETOX.
[2016-11-29] MEDS: THIAMINE HCL 100 MG TABLET (FP) PO SCH (22:39)
[2016-11-29] MEDS: MIRTAZAPINE 15 MG TABLET (FP) PO SCH (22:39)
[2016-11-29] MEDS: QUEtiapine FUMARATE 100 MG TABLET (FP) PO SCH (22:40)
[2016-11-30] MEDS: TRIMETHOBENZAMIDE HCL 200MG/2ML INJ IM PRN (06:07)
[2016-11-30 06:18] VITALS: PULSE 101; TEMP 97.5
[2016-11-30 09:25] VITALS: BP 135/101
[2016-11-30] MEDS ORDERED: METHADONE HCL 10 MG TABLET (FOR DETOX USE ONLY) PO ONE (10:00)
[2016-11-30] MEDS: PRENATAL VITAMINS W/ FOLIC ACID TABLET (FP) PO SCH (10:42)
[2016-11-30] MEDS: NICOTINE 21 MG/24 HOURS TOPICAL PATCH TD SCH (11:06)
--- NOTE | 2016-11-30 11:33 | DS ---
[facility] Detox Discharge Summary Admission Date: 11/26/16 Discharge Date: 11/30/16 - History Present History: Alcohol Dependence, Cannabis Dependence, Cocaine Dependence, Opioid Dependence Pertinent Past History: Asthma - Physical Exam Results Vital Signs: Vital Signs Temperature 97.5 F L 11/30/16 09:24 Pulse Rate 101 H 11/30/16 09:24 Respiratory Rate 20 11/30/16 09:24 Blood Pressure 135/101 11/30/16 09:24 O2 Sat by Pulse Oximetry (%) Pertinent Admission Physical Exam Findings: Withdrawal sx. Laboratory Last Values WBC 8.8 K/mm3 (4.0-10.0) 11/27/16 06:00 RBC 5.08 M/mm3 (4.00-5.60) 11/27/16 06:00 Hgb 15.1 GM/dL (11.7-16.9) 11/27/16 06:00 Hct 44.7 % (35.4-49) 11/27/16 06:00 MCV 88.0 fl (80-96) 11/27/16 06:00 MCHC 33.8 g/dl (32.0-35.9) 11/27/16 06:00 RDW 12.1 % (11.9-15.9) 11/27/16 06:00 Plt Count 320 K/MM3 (134-434) D 11/27/16 06:00 MPV 9.9 fl (7.5-11.1) 11/27/16 06:00 Sodium 139 mmol/L (136-145) 11/27/16 06:00 Potassium 4.7 mmol/L (3.5-5.1) 11/27/16 06:00 Chloride 101 mmol/L (98-107) 11/27/16 06:00 Carbon Dioxide 28 mmol/L (21-32) 11/27/16 06:00 Anion Gap 10 (8-16) 11/27/16 06:00 BUN 12 mg/dL (7-18) D 11/27/16 06:00 Creatinine 1.1 mg/dL (0.7-1.3) D 11/27/16 06:00 Creat Clearance w eGFR > 60 (>60) 11/27/16 06:00 Random Glucose 92 mg/dL (74-106) D 11/27/16 06:00 Calcium 9.8 mg/dL (8.5-10.1) 11/27/16 06:00 Total Bilirubin 0.3 mg/dL (0.2-1.0) D 11/27/16 06:00 AST 14 U/L (15-37) L 11/27/16 06:00 ALT 19 U/L (12-78) D 11/27/16 06:00 Alkaline Phosphatase 110 U/L (45-117) 11/27/16 06:00 Total Protein 8.3 g/dl (6.4-8.2) H 11/27/16 06:00 Albumin 4.1 g/dl (3.4-5.0) 11/27/16 06:00 Urine Color Yellow 11/26/16 14:00 Urine Appearance Clear 11/26/16 14:00 Urine pH 5.0 (5.0-8.0) 11/26/16 14:00 Ur Specific [place] 1.020 (1.005-1.025) 11/26/16 14:00 Urine Protein Negative (NEGATIVE) 11/26/16 14:00 Urine Glucose (UA) Negative (NEGATIVE) 11/26/16 14:00 Urine Ketones Negative (NEGATIVE) 11/26/16 14:00 Urine Blood Negative (NEGATIVE) 11/26/16 14:00 Urine Nitrite Negative (NEGATIVE) 11/26/16 14:00 Urine Bilirubin Negative (NEGATIVE) 11/26/16 14:00 Urine Urobilinogen Negative E.U./dl (0.2-1.0) 11/26/16 14:00 Ur Leukocyte Esterase Negative (NEGATIVE) 11/26/16 14:00 RPR Titer Nonreactive (NONREACTIVE) 11/27/16 06:00 labs noted - Treatment Patient has Accepted a Rehab Referral to: [facility]. IOP - Medication Discharge Medications: Ambulatory Orders Albuterol Sulfate Inhaler - [Ventolin Hfa Inhaler -] 2 inh PO Q4H PRN 03/30/16 Mirtazapine 7.5 mg PO HS #30 tablet 11/30/16 Quetiapine Fumarate [Seroquel] 100 mg PO HS #30 tablet 11/30/16 - Diagnosis (1) Cannabis dependence Current Visit: Yes Status: Acute (2) Nicotine dependence Current Visit: Yes Status: Acute Qualifiers: Nicotine product type: cigarettes Substance use status: in withdrawal Qualified Code(s): F17.213 - Nicotine dependence, cigarettes, with withdrawal (3) Opioid dependence with withdrawal Current Visit: Yes Status: Acute (4) Asthma Current Visit: Yes Status: Chronic Qualifiers: Asthma severity: mild intermittent Asthma complication type: uncomplicated Qualified Code(s): J45.20 - Mild intermittent asthma, uncomplicated (5) Drug-induced mood disorder Current Visit: Yes Status: Acute (6) Bipolar disorder Current Visit: Yes Status: Chronic - AMA Did Patient Leave Against Medical Advice: Yes
[2016-12-01] MEDS ORDERED: METHADONE HCL 5 MG TABLET (FOR DETOX USE ONLY) PO ONE (06:00)
== END 2016-11-30 11:30 | disposition left against medical advice (07) | DRG 770 ==
LOC: YASAS 10:12 → Y3N 13:11
PROVIDERS: ADMIT Internal Medicine; ATTEND Internal Medicine
PROC: HZ2ZZZZ Detoxification Services for Substance Abuse Treatment (ICD-10-PCS; principal; 2016-11-26)
DX: F11.23 Opioid dependence with withdrawal (principal); F12.20 Cannabis dependence, uncomplicated; F17.213 Nicotine dependence, cigarettes, with withdrawal; F19.24 Other psychoactive substance dependence with psychoactive substance-induced mood disorder; F31.9 Bipolar disorder, unspecified; J45.20 Mild intermittent asthma, uncomplicated; J44.9 Chronic obstructive pulmonary disease, unspecified; G47.00 Insomnia, unspecified
CPT/HCPCS: 36415; 80053; 81003; 85027; 86593; 93005; 93010

== ENCOUNTER 2017-02-04 15:57 | Inpatient (IN) | payer BC ==
[2017-02-04 17:11] VITALS: BMI 22.4
--- NOTE | 2017-02-04 19:55 | HP ---
COWS - Scale Resting Pulse: 0= [place] 80 or Below Sweatin=Flushed/Facial Moisture Restless Observation: 3= Extraneous Movement Pupil Size: 2= Moderately Dilated Bone or Joint Aches: 2= Severe Diffuse Aches Runny Nose/ Eye Tearin= Runny Nose/Eyes GI Upset > 30mins: 3= Vomiting/Diarrhea Tremor Observation: 2= Slight Tremor Visible Yawning Observation: 2= >3x During Session Anxiety or Irritability: 2=Irritable/Anxious Goose Flesh Skin: 0=Smooth Skin COWS Score: 20 Admission ROS S - HPI Chief Complaint: I AM HERE DETOX FROM HEROIN Allergies/Adverse Reactions: Allergies Allergy/AdvReac Type Severity Reaction Status Date / Time No Known Allergies Allergy Verified 02/04/17 19:14 History of Present Illness: THIS 31 YEARS OLD MALE WITH HEROIN DEPENDENCE,SEEKING DETOX,LAST TREATMENT IN [place] FOR 01/18 17 TO 01/20/17 NOT COMPLETED MULTIPLE ADMISSIONS TO DETOX ,KEEP RELAPSING NICOTINE DEPENDENCE ANXIETY,DEPRESSION,INSOMNIA LONGEST PERIOD OF SOBRIETY 6 MONTHS Exam Limitations: No Limitations - Ebola screening Have you traveled outside of the country in the last 21 days: No Have you had contact with anyone from an Ebola affected area: No Have you been sick,other than usual withdrawal symptoms: No Do you have a fever: No - Review of Systems Constitutional: Chills, Diaphoresis, Loss of Appetite, Malaise, Night Sweats, Changes in sleep, Weakness, Unintentional Wgt. Loss EENT: reports: Tearing, Nose Congestion Respiratory: reports: No Symptoms reported, Other (ASTHMA) Cardiac: reports: No Symptoms Reported GI: reports: Diarrhea, Nausea, Vomiting, Abdominal cramping : reports: No Symptoms Reported Musculoskeletal: reports: Back Pain, Joint Pain, Muscle Pain, Joint Stiffness Integumentary: reports: Dryness Neuro: reports: Headache, Tremors Endocrine: reports: No Symptoms Reported Hematology: reports: No Symptoms Reported Psychiatric: reports: Judgement Intact, Mood/Affect Appropiate, Orientated x3, Anxious, Depressed Patient History - Patient Medical History Hx Anemia: No Hx Asthma: Yes (ON ALBUEROL INHALER) Hx Chronic Obstructive Pulmonary Disease (COPD): Yes (ON ALBUTEROL INHALER) Hx Cancer: No Hx Cardiac Disorders: No Hx Congestive Heart Failure: No Hx Hypertension: No Hx Hypercholesterolemia: No Hx Pacemaker: No HX Cerebrovascular Accident: No Hx Seizures: No Hx Dementia: No Hx Diabetes: No Hx Gastrointestinal Disorders: No Hx Liver Disease: No Hx Genitourinary Disorders: No Hx Sexually Transmitted Disorders: No Hx Renal Disease (ESRD): No Hx Thyroid Disease: No Hx Human Immunodeficiency Virus (HIV): No (LAST 09/21 NEGATIVE) Hx Hepatitis C: No Hx Depression: Yes (ANXIETY) Hx Suicide Attempt: No Hx Bipolar Disorder: No Hx Schizophrenia: No Other Medical History: INSOMNIA,NO SUICIDAL,NO HOMICIDAL - Patient Surgical History Past Surgical History: No Hx Neurologic Surgery: No Hx Cataract Extraction: No Hx Cardiac Surgery: No Hx Lung Surgery: No Hx Breast Surgery: No Hx Breast Biopsy: No Hx Abdominal Surgery: No Hx Appendectomy: No Hx Cholecystectomy: No Hx Genitourinary Surgery: No Hx Section: No Hx Orthopedic Surgery: No Anesthesia Reaction: No - PPD History Previous Implant?: No Documented Results: Negative w/proof Implanted On Prior [facility] Admission?: Yes Date: 02/10/16 Results: 0 mm PPD to be Administered?: No - Smoking Cessation Smoking history: Current every day smoker Have you smoked in the past 12 months: Yes Aproximately how many cigarettes per day: 5 Hx Chewing Tobacco Use: No Initiated information on smoking cessation: Yes 'Breaking Loose' booklet given: 02/04/17 - Substance & Tx. History Hx Alcohol Use: No Hx Substance Use: Yes Substance Use Type: Heroin, Marijuana Hx Substance Use Treatment: Yes ([place] 01/18/17 TO 01/20/17 NOT COMPLETED) - Substances Abused Heroin Route: Inhalation Frequency: Daily Amount used: 4 bags Age of first use: 29 Date of Last Use: 02/04/17 Family Disease History - Family Disease History Family Disease History: Diabetes: Father ( OF AN CA,DRUG ADDICT), Heart Disease: Father, Other: Mother (In remission from alcohol) Admission Physical Exam BHS - Vital Signs Vital Signs: Vital Signs - 24 hr 02/04/17 17:08 Temperature 97.6 F Pulse Rate 68 Respiratory 18 Rate Blood Pressure 125/77 - Physical General Appearance: Yes: Moderate Distress, Tremorous, Irritable, Sweating, Anxious HEENTM: Yes: Normal ENT Inspection, [place], Pharynx Normal Respiratory: Yes: Lungs Clear, Normal Breath Sounds, No Respiratory Distress Neck: Yes: Within Normal Limits, Supple, Trachea in good position Breast: Yes: Within Normal Limits Cardiology: Yes: Within Normal Limits, Regular Rhythm, Regular Rate, S1, S2 Abdominal: Yes: Within Normal Limits, Normal Bowel Sounds, Non Tender, Flat, Soft Genitourinary: Yes: Within Normal Limits Back: Yes: Muscle Spasm Musculoskeletal: Yes: full range of Motion, Back pain, Joint Stiffness, Muscle Pain Extremities: Yes: Within Normal Limits, Normal Range of Motion, Tremors Neurological: Yes: appraiser [place] II-XII NML intact, Fully Oriented, Alert, Motor Strength 5/5 Integumentary: Yes: Within Normal Limits, Dry Lymphatic: Yes: Within Normal Limits - Diagnostic (1) Cannabis dependence Current Visit: No Status: Acute (2) Insomnia Current Visit: No Status: Acute (3) Nicotine dependence Current Visit: No Status: Acute Qualifiers: Nicotine product type: cigarettes Substance use status: in withdrawal Qualified Code(s): F17.213 - Nicotine dependence, cigarettes, with withdrawal (4) Opioid dependence with withdrawal Current Visit: No Status: Acute (5) Cannabis dependence, uncomplicated Current Visit: No Status: Chronic (6) Weight loss Current Visit: Yes Status: Acute Cleared for Admission [facility] - Detox or Rehab [facility] Level of Care: Medically Managed Detox Regimen/Protocol: Methadone [facility] Breath Alcohol Content Breath Alcohol Content: 0 Urine Drug Screen - Results Drug Screen Negative: No Urine Drug Screen Results: THC-Marijuana, FER-Cocaine, OPI-Opiates, MTD- Methadone
[2017-02-04] MEDS ORDERED: guaiFENesin/D-METHORPHAN HB 10 ML UNIT-DOSE CUPS PO PRN (20:05)
[2017-02-04] MEDS ORDERED: MAGNESIUM CITRATE 300 ML BOTTLE PO PRN (20:05)
[2017-02-04] MEDS ORDERED: P-EPHED 60MG/TRIPROLIDI 2.5MG TABLET PO PRN (20:05)
[2017-02-04] MEDS ORDERED: MAGNESIUM HYDROX 2400MG/30ML ORAL SUSPENSION 30 ML CUP PO PRN (20:05)
[2017-02-04] MEDS ORDERED: diphenhydrAMINE HCL 50 MG CAPSULE PO PRN (20:05)
[2017-02-04] MEDS ORDERED: hydrOXYzine PAMOATE 25 MG CAPSULE (FP) PO PRN (20:05)
[2017-02-04] MEDS ORDERED: METHADONE HCL 10 MG TABLET (FOR DETOX USE ONLY) PO ONE ×2 (20:05→23:00)
[2017-02-04] MEDS ORDERED: IBUPROFEN 400 MG TABLET (FP) PO PRN (20:05)
[2017-02-04] MEDS ORDERED: MAG HYDROX/AL HYDROX/SIMETH 30 ML UNIT-DOSE CUP PO PRN (20:05)
[2017-02-04] MEDS ORDERED: MENTHOL/PHENOL 1 EACH UD MM PRN (20:05)
[2017-02-04] MEDS ORDERED: ACETAMINOPHEN 325 MG TABLET (FP) PO PRN (20:05)
[2017-02-04] MEDS ORDERED: LOPERAMIDE HCL 2 MG CAPSULE PO PRN (20:05)
[2017-02-04] MEDS ORDERED: ALBUTEROL SO4 6.7 GM HFA INHALER IH PRN (20:08)
[2017-02-04] MEDS: diazePAM 5 MG TABLET PO PRN (20:46)
[2017-02-04] MEDS: THIAMINE HCL 100 MG TABLET (FP) PO SCH (22:55)
[2017-02-05] MEDS: diazePAM 5 MG TABLET PO PRN ×3 (05:22→22:08)
[2017-02-05] MEDS ORDERED: METHADONE HCL 10 MG TABLET (FOR DETOX USE ONLY) PO ONE (10:00)
[2017-02-05] MEDS: PRENATAL VITAMINS W/ FOLIC ACID TABLET (FP) PO SCH (10:05)
[2017-02-05 10:30] LABS: MCH 29.7 pg (25.7-33.7); MCHC 34.1 g/dl (32.0-35.9); MEAN CELL VOLUME 87.1 fl (80-96); PLATELET COUNT 214 K/MM3 (134-434); RDW 13.8 % (11.9-15.9); WHITE BLOOD COUNT 8.7 K/mm3 (4.0-10.0)
--- NOTE | 2017-02-05 10:36 | PN ---
B[facility] COWS - Scale Resting Pulse: 0= [place] 80 or Below Sweatin= Chills/Flushing Restless Observation: 3= Extraneous Movement Pupil Size: 1= Pupils >than Normal Bone or Joint Aches: 2= Severe Diffuse Aches Runny Nose/ Eye Tearin= Runny Nose/Eyes GI Upset > 30mins: 2= Nausea/Diarrhea Tremor Observation of Outstretched Hands: 2= Slight Tremor Visible Yawning Observation: 1= 1-2x During Session Anxiety or Irritability: 2=Irritable/Anxious Goose Flesh Skin: 0=Smooth Skin COWS Score: 16 BHS Progress Note (SOAP) Subjective: ALERT,IRRITABLE,ANXIOUS,INTERRUPTED SLEEP,TREMOR,PAIN IN THE BODY AND BACK Objective: 02/05/17 10:33 Vital Signs Temperature 97.2 F L 02/05/17 06:04 Pulse Rate 66 02/05/17 06:04 Respiratory Rate 16 02/05/17 06:04 Blood Pressure 101/59 02/05/17 06:04 O2 Sat by Pulse Oximetry (%) EKG NSR NO CHEST PAIN,NO SOB,NO DIZZINESS LABS PENDING Assessment: 02/05/17 10:35 WITHDRAWAL SYMPTOM Plan: CONTINUE DETOX
--- NOTE | 2017-02-05 10:49 | PN ---
BHS Progress Note Note: ADDENDUM SUBCONJUNCTIVAL HEMORRHAGE OF RIGHT EYE,STITCHES OF RIGHT EYE BROWN FOR 1 WEEKS
--- NOTE | 2017-02-05 11:37 | CONSULT ---
[facility] Psychiatric Consult - Data Date of interview: 02/05/17 Admission source: [facility] Identifying data: One of multiple admissions to [facility] for this 31 y/o male seeking detox treatment on for cocaine,heroin and marijuana dependence.Patient is ,a father of three,homeless (residential), unemployed and supported on food stamps. Substance Abuse History: Discussed in detail with the patient in the course of this interview.Mr Porter confirms this pattern of substance abuse provided at [facility] : Smoking Cessation. Smoking history: Current every day smoker. Have you smoked in the past 12 months: Yes. Aproximately how many cigarettes per day: 5. Hx Chewing Tobacco Use: No. Initiated information on smoking cessation: Yes. 'Breaking Loose' booklet given: 02/04/17. - Substance & Tx. History. Hx Alcohol Use: No. Hx Substance Use: Yes. Substance Use Type: Heroin, Marijuana. Hx Substance Use Treatment: Yes ([facility] 01/18/17 TO 01/20/17 NOT COMPLETED). - Substances Abused. Heroin. Route: Inhalation. Frequency: Daily. Amount used: 4 bags. Age of first use: 29. Date of Last Use: 02/04/17 Medical History: Consistent with bronchial asthma. Psychiatric History: No history of psychiatric hospitalizations.Diagnosed with Bipolar Disorder.Last exposure to medications (depakote + remeron) was in 2005 during his incarceration.Mr Porter has been lost to follow up for years.He indicates that he did not follow with [facility] care after his most recent discharge from [facility] (11/2016). Patient reiterates interest only for seroquel at bedtime.No reported history of suicide attempts. Physical/Sexual Abuse/Trauma History: No history. Additional Comment: Urine Drug Screen Results: THC-Marijuana, FER-Cocaine, OPI- Opiates, MTD-Methadone.Noted. Mental Status Exam - Mental Status Exam Alert and Oriented to: Time, Place, Person Cognitive Function: Good Patient Appearance: Well Groomed Mood: Withdrawn, Anxious Affect: Mood Congruent Patient Behavior: Fatigued, Cooperative Speech Pattern: Clear Voice Loudness: Normal Thought Process: Goal Oriented Thought Disorder: Not Present Hallucinations: Denies Suicidal Ideation: Denies Homicidal Ideation: Denies Insight/Judgement: Poor Sleep: Poorly, Difficulty falling asleep Appetite: Good Muscle strength/Tone: Normal Gait/Station: Normal Psychiatric Findings - Problem List ([place] 1, 2,3) (1) Opioid dependence with withdrawal Current Visit: Yes Status: Acute (2) Cannabis dependence Current Visit: Yes Status: Acute (3) Cocaine dependence Current Visit: Yes Status: Acute Qualifiers: Substance use status: uncomplicated Qualified Code(s): F14.20 - Cocaine dependence, uncomplicated (4) Nicotine dependence Current Visit: Yes Status: Acute Qualifiers: Nicotine product type: cigarettes Substance use status: in withdrawal Qualified Code(s): F17.213 - Nicotine dependence, cigarettes, with withdrawal (5) Drug-induced mood disorder Current Visit: Yes Status: Acute (6) Bipolar disorder Current Visit: No Status: Chronic Comment: Self-report.Non compliant with medications. (7) Asthma Current Visit: Yes Status: Chronic Qualifiers: Asthma severity: mild intermittent Asthma complication type: uncomplicated Qualified Code(s): J45.20 - Mild intermittent asthma, uncomplicated (8) Insomnia Current Visit: Yes Status: Acute - Initial Treatment Plan Initial Treatment Plan: Psychoeducation.Detoxification.Medications : seroquel 100 mg po hs.Side effects/benefits discussed with patient.He agrees with careplan.Observation.
[2017-02-05 12:22] LABS: ALBUMIN 3.9 g/dl (3.4-5.0); ALK PHOS 88 U/L (45-117); ANION GAP 9 (8-16); BILIRUBIN,TOTAL 0.7 mg/dL (0.2-1.0); CALCIUM 9.6 mg/dL (8.5-10.1); CO2 28 mmol/L (21-32); CREATININE 1.1 mg/dL (0.7-1.3); GLUCOSE,RANDOM 92 mg/dL (74-106); SGOT/AST 16 U/L (15-37); SGPT/ALT 29 U/L (12-78); TOT PROT 6.9 g/dl (6.4-8.2)
--- NOTE | 2017-02-05 14:09 | EKG ---
Test Reason : Blood Pressure : / mmHG Vent. Rate : 063 BPM Atrial Rate : 063 BPM P-R Int : 162 ms QRS Dur : 096 ms QT Int : 390 ms P-R-T Axes : 053 -49 036 degrees QTc Int : 399 ms NORMAL SINUS RHYTHM LEFT AXIS DEVIATION ABNORMAL ECG WHEN COMPARED WITH ECG OF 26-NOV-2016 12:51, NO SIGNIFICANT CHANGE WAS FOUND CLINICAL CORRELATION IS RECOMMENDED Confirmed by RENETTA DOVER MD ([id number]) on 02/05/2017 2:08:40 PM Referred By: Keegan Noyola Confirmed By:RENETTA DOVER MD
[2017-02-05] MEDS: THIAMINE HCL 100 MG TABLET (FP) PO SCH (22:06)
[2017-02-05] MEDS: QUEtiapine FUMARATE 100 MG TABLET (FP) PO SCH (22:06)
--- NOTE | 2017-02-06 09:48 | PN ---
S COWS - Scale Resting Pulse: 0= ME 80 or Below Sweatin= Chills/Flushing Restless Observation: 3= Extraneous Movement Pupil Size: 1= Pupils >than Normal Bone or Joint Aches: 2= Severe Diffuse Aches Runny Nose/ Eye Tearin= Runny Nose/Eyes GI Upset > 30mins: 2= Nausea/Diarrhea Tremor Observation of Outstretched Hands: 2= Slight Tremor Visible Yawning Observation: 1= 1-2x During Session Anxiety or Irritability: 2=Irritable/Anxious Goose Flesh Skin: 0=Smooth Skin COWS Score: 16 S Progress Note (SOAP) Subjective: alert,irritable,anxious,interrupted sleep,tremor,pain in the body and back Objective: 02/06/17 09:46 Vital Signs Temperature 97.0 F L 02/06/17 06:23 Pulse Rate 65 02/06/17 06:23 Respiratory Rate 8 L 02/06/17 06:23 Blood Pressure 114/71 02/06/17 06:23 O2 Sat by Pulse Oximetry (%) Laboratory Last Values WBC 8.7 K/mm3 (4.0-10.0) 02/05/17 06:30 RBC 4.88 M/mm3 (4.00-5.60) 02/05/17 06:30 Hgb 14.5 GM/dL (11.7-16.9) 02/05/17 06:30 Hct 42.6 % (35.4-49) 02/05/17 06:30 MCV 87.1 fl (80-96) 02/05/17 06:30 MCH 29.7 pg (25.7-33.7) 02/05/17 06:30 MCHC 34.1 g/dl (32.0-35.9) 02/05/17 06:30 RDW 13.8 % (11.9-15.9) D 02/05/17 06:30 Plt Count 214 K/MM3 (134-434) D 02/05/17 06:30 MPV 9.0 fl (7.5-11.1) 02/05/17 06:30 Sodium 141 mmol/L (136-145) 02/05/17 06:30 Potassium 4.8 mmol/L (3.5-5.1) 02/05/17 06:30 Chloride 104 mmol/L (98-107) 02/05/17 06:30 Carbon Dioxide 28 mmol/L (21-32) 02/05/17 06:30 Anion Gap 9 (8-16) 02/05/17 06:30 BUN 15 mg/dL (7-18) D 02/05/17 06:30 Creatinine 1.1 mg/dL (0.7-1.3) 02/05/17 06:30 Creat Clearance w eGFR > 60 (>60) 02/05/17 06:30 Random Glucose 92 mg/dL (74-106) 02/05/17 06:30 Calcium 9.6 mg/dL (8.5-10.1) 02/05/17 06:30 Total Bilirubin 0.7 mg/dL (0.2-1.0) D 02/05/17 06:30 AST 16 U/L (15-37) 02/05/17 06:30 ALT 29 U/L (12-78) D 02/05/17 06:30 Alkaline Phosphatase 88 U/L (45-117) 02/05/17 06:30 Total Protein 6.9 g/dl (6.4-8.2) 02/05/17 06:30 Albumin 3.9 g/dl (3.4-5.0) 02/05/17 06:30 RPR Titer Nonreactive (NONREACTIVE) 02/05/17 06:30 Assessment: 02/06/17 09:47 withdrawal symptom Plan: continue detox
[2017-02-06] MEDS ORDERED: METHADONE HCL 5 MG TABLET (FOR DETOX USE ONLY) PO ONE (10:00)
[2017-02-06] MEDS: PRENATAL VITAMINS W/ FOLIC ACID TABLET (FP) PO SCH (10:13)
[2017-02-06] MEDS: diazePAM 5 MG TABLET PO PRN ×3 (12:53→22:35)
[2017-02-06 14:42] LABS: URINE APPEARANCE CLEAR; URINE BILIRUBIN NEGATIVE (NEGATIVE); URINE BLOOD NEGATIVE (NEGATIVE); URINE COLOR LTYELLOW; URINE GLUCOSE (UA) NEGATIVE (NEGATIVE); URINE KETONE NEGATIVE (NEGATIVE); URINE LEUK ESTERASE NEGATIVE (NEGATIVE); URINE NITRITE NEGATIVE (NEGATIVE); URINE PROTEIN NEGATIVE (NEGATIVE); URINE UROBILINOGEN NEGATIVE mg/dL (0.2-1.0)
[2017-02-06] MEDS: THIAMINE HCL 100 MG TABLET (FP) PO SCH (22:12)
[2017-02-06] MEDS: QUEtiapine FUMARATE 100 MG TABLET (FP) PO SCH (22:12)
--- NOTE | 2017-02-07 09:54 | PN ---
S Progress Note (SOAP) Subjective: ALERT,IRRITABLE,ANXIOUS,INTERRUPTED SLEEP,TREMOR,PAIN IN THE BODY AND BACK Objective: 02/07/17 09:53 Vital Signs Temperature 96.1 F L 02/07/17 09:23 Pulse Rate 81 02/07/17 09:23 Respiratory Rate 18 02/07/17 09:23 Blood Pressure 132/90 02/07/17 09:23 O2 Sat by Pulse Oximetry (%) Assessment: 02/07/17 09:53 WITHDRAWAL SYMPTOM Plan: CONTINUE DETOX
[2017-02-07] MEDS ORDERED: METHADONE HCL 5 MG TABLET (FOR DETOX USE ONLY) PO ONE (10:00)
[2017-02-07] MEDS: PRENATAL VITAMINS W/ FOLIC ACID TABLET (FP) PO SCH (10:18)
[2017-02-07] MEDS: diazePAM 5 MG TABLET PO PRN ×2 (11:44→17:18)
[2017-02-07 13:48] VITALS: BP 125/90; PULSE 82; TEMP 96.8
--- NOTE | 2017-02-07 21:08 | DS ---
[facility] Detox Discharge Summary Admission Date: 02/04/17 Discharge Date: 02/07/17 - History Present History: Cannabis Dependence, Cocaine Dependence, Opioid Dependence Pertinent Past History: Asthma COPD Nicotine dependence - Physical Exam Results Vital Signs: Vital Signs Temperature 96.8 F L 02/07/17 13:47 Pulse Rate 82 02/07/17 13:47 Respiratory Rate 18 02/07/17 13:47 Blood Pressure 125/90 02/07/17 13:47 O2 Sat by Pulse Oximetry (%) Pertinent Admission Physical Exam Findings: Client left AMA. He did not wait to see ROAD MAKER. - Medication Discharge Medications: Ambulatory Orders Albuterol Sulfate Inhaler - [Ventolin Hfa Inhaler -] 2 inh PO Q4H PRN 03/30/16 Mirtazapine 7.5 mg PO HS #30 tablet 11/30/16 Quetiapine Fumarate [Seroquel] 100 mg PO HS #30 tablet 11/30/16 Quetiapine Fumarate [Seroquel] 100 mg PO HS #30 tablet 02/05/17 - Diagnosis (1) Nicotine dependence Status: Acute Qualifiers: Nicotine product type: cigarettes Substance use status: in withdrawal Qualified Code(s): F17.213 - Nicotine dependence, cigarettes, with withdrawal (2) Opioid dependence with withdrawal Status: Chronic (3) Cocaine dependence, uncomplicated Status: Chronic - AMA Did Patient Leave Against Medical Advice: Yes (THE PATIENT REQUESTED TO LEAVE AMA AND REFUSED TO WAIT FOR THE ROAD MAKER TO ARRIVE)
[2017-02-08] MEDS ORDERED: METHADONE HCL 10 MG TABLET (FOR DETOX USE ONLY) PO ONE (10:00)
[2017-02-09] MEDS ORDERED: METHADONE HCL 5 MG TABLET (FOR DETOX USE ONLY) PO ONE (06:00)
== END 2017-02-07 18:10 | disposition left against medical advice (07) | DRG 770 ==
LOC: YASAS 15:57 → Y6N 19:16
PROVIDERS: ADMIT Internal Medicine; ATTEND Internal Medicine
PROC: HZ2ZZZZ Detoxification Services for Substance Abuse Treatment (ICD-10-PCS; principal; 2017-02-04)
DX: F11.23 Opioid dependence with withdrawal (principal); F14.20 Cocaine dependence, uncomplicated; F12.20 Cannabis dependence, uncomplicated; F17.213 Nicotine dependence, cigarettes, with withdrawal; F19.24 Other psychoactive substance dependence with psychoactive substance-induced mood disorder; F31.9 Bipolar disorder, unspecified; G47.00 Insomnia, unspecified; J45.20 Mild intermittent asthma, uncomplicated; J44.9 Chronic obstructive pulmonary disease, unspecified; Z87.898 Personal history of other specified conditions
CPT/HCPCS: 36415; 80053; 81003; 85027; 86593; 93005; 93010